=== PATIENT | female | born 1975 | race Caucasian/White ===

== ENCOUNTER 2023-10-03 09:38 | Emergency (ER) | payer BC, SELFPAY ==
[2023-10-03 09:41] VITALS: BP 123/76
--- NOTE | 2023-10-03 10:01 | ED.GENMED ---
History of Present Illness
General
Chief Complaint: Back Pain
Source: patient
Exam Limitations: none
Time Seen by Provider: 10/03/23 09:50
History of Present Illness
History of Present Illness:
48-year-old female presents complaining of severe low back pain that radiates down the posterior left leg into the posterior calf. This was getting worse since yesterday. She has been dealing with similar symptoms for 5 weeks. She saw
orthopedics. She did physical therapy Neurontin and Celebrex. She noted no relief. She called to try to expedite a follow-up appointment and we can get her in until tomorrow. She is unable to sleep unable to walk secondary to pain. She denies
any bowel or bladder function. No perianal anesthesia. No weakness to the legs.
Past History
Past History
ED Past Medical History: Cancer (Thyroid), Psychiatric (Anxiety) and Other (Migraines, ovarian cyst)
ED Past Surgical History: Other (Thyroidectomy)
Social History
Tobacco: Non-smoker
Alcohol: Occasional
Personal:
Living: with family
Family History
Family History: Negative CAD
Phy Exam
Physical Exam
Physical Exam:
General: uncomfortable appearing female no acute distress
Musculoskeletal exam: No reproducible tenderness over the lumbar spine
Heart: Regular rate and rhythm no murmurs
Lungs: Clear no wheeze
Neurologic: Good sensation and strength to lower extremities bilaterally. Bilateral patellar reflexes 2+.
Vascular: 2+ dorsalis pedis pulse bilateral feet
Course
Orders/Labs/Results
Orders:
Orders
10/03/23 10:00
Dexamethasone Sod Phosphate [Decadron] 10 mg IV NOW STA
Ketorolac [Toradol] 15 mg IV NOW STA
diazePAM [Valium Injection] 5 mg IV NOW STA
Vital Signs
Initial and Last Documented VS:
Initial Vital Signs
Temp Pulse Resp BP Pulse Ox
98.8 F 83 18 123/76 99
10/03/23 09:41 10/03/23 09:41 10/03/23 09:41 10/03/23 09:41 10/03/23 09:41
Last Documented Vital Signs
Temp Pulse Resp BP Pulse Ox
98.1 F 74 16 112/68 99
10/03/23 12:00 10/03/23 12:00 10/03/23 12:00 10/03/23 12:00 10/03/23 12:00
MDM/Problems Addressed
Differential Diagnosis Includes:
Lower back pain radiating down the left leg. Suspect radiculopathy. No signs to suggest cauda equina. No fever to suggest infectious source. Patient has been taking oral Celebrex and gabapentin without significant relief.
*Critical Care Note
Total Time (30-74mins, 75-104mins- exclusive of procedures): Not Applicable
Update Note
Update Note:
Patient feeling significant improvement after Valium Toradol and Decadron. Will send patient home with Valium and prednisone if needed. She is due to see orthopedics tomorrow.
ED Attending Note
-
Portions of this chart may have been created with voice recognition software.� Occasional wrong word or��sound alike� substitutions may have occurred due to the inherent limitations of voice recognition software.
Discharge Plan
Departure
Patient Disposition: Home (Routine Discharge)
Date of Disposition: 10/03/23
Time of Disposition: 12:22
Patient with high blood pressure during this ER visit?: No
Discharge Problem:
Acute lumbar radiculopathy
Instructions: Radiculopathy (DC)
Prescriptions:
New
prednisone 10 mg Tablet
See Rx Instructions .ROUTE .COMPLEX Qty: 30 0RF
Rx Instructions:
Take By Mouth:
40 mg daily x3 days, 30 mg daily x3 days,
20 mg daily x3 days, 10 mg daily x3 days.
diazepam [Valium] 5 mg tablet
5 mg PO TID PRN (Reason: muscle spasm) Qty: 10 0RF
No Action
levothyroxine 200 MCG tablet
200 mcg PO DAILY
escitalopram oxalate 20 MG tablet
20 mg PO DAILY
oxycodone-acetaminophen [Percocet] 1 EACH tablet
1 ea PO Q4HPRN PRN (Reason: Pain) Qty: 15 0RF
Referrals:
Manan Koch DO [Family Provider] -
Activity Restrictions/Additional Instructions:
Rest. Take prednisone as directed. Use Valium if needed for spasm. Follow-up with orthopedic as planned peer return if worse otherwise
Interventions
Interventions:
*Risk Screen - Suicide Last Done: 10/03/23 09:41
*General Assessment Last Done: 10/03/23 09:41
*Neglect/Abuse Screening Last Done: 10/03/23 09:41
ED-Musculoskeletal Assessment Last Done: 10/03/23 10:15
Discharge Date and Time
Print Language: THAI
[2023-10-03] MEDS: DECADRON 10 MG IV (10:10)
[2023-10-03] MEDS: VALIUM INJECTION 5 MG IV (10:11)
[2023-10-03] MEDS: TORADOL 15 MG IV (10:11)
[2023-10-03 12:00] VITALS: BP 112/68
== END 2023-10-03 12:25 | disposition home or self-care (01) ==
LOC: EMR 09:38
PROVIDERS: EMERGENCY PHYSICIAN Student in an Organized Health Care Education/Training Program; FAMILY PHYSICIAN Family Medicine
DX: M54.16 Radiculopathy, lumbar region (principal); R26.2 Difficulty in walking, not elsewhere classified; F41.9 Anxiety disorder, unspecified; G43.909 Migraine, unspecified, not intractable, without status migrainosus; N83.209 Unspecified ovarian cyst, unspecified side; Z85.850 Personal history of malignant neoplasm of thyroid; Z88.2 Allergy status to sulfonamides
CPT/HCPCS: 99284; 96374; 96375 ×2

== ENCOUNTER 2024-01-29 17:39 | Emergency (ER) | payer BC, SELFPAY ==
[2024-01-29 17:55] VITALS: BP 152/87
[2024-01-29 18:11] LABS: % Basophils 0.2 % (0-2); % Eosinophils 1.2 % (0-6); % Immature Granulocytes 0.4 % (0-0.5); % Lymphocytes 18.8 % (20.5-51.1); % Monocytes 9.4 % (1.7-9.3); Absolute Eosinophils 0.1 10^3/uL (0-0.7); Absolute Lymphocytes 0.9 10^3/uL (1.2-3.4); Absolute Monocytes 0.5 10^3/uL (0.1-0.6); Absolute Neutrophils 3.4 10^3/uL (1.4-6.5); Hematocrit 40.1 % (37.0-47.0); Hemoglobin 14.4 g/dL (12.0-16.0); Mean Corp Hgb Conc. 35.9 g/dL (33.0-37.0); Mean Corpuscular Volume 86.4 fL (81.0-99.0); Mean Platelet Volume 8.5 fL (7.4-10.4); Nucleated Red Blood Cells % 0 %; Platelet Count 170 10^3/uL (130-400); Red Blood Cell Count 4.64 10^6/uL (4.20-5.40); Red Cell Dist. Width 13.2 % (11.5-14.5); White Blood Cell Count 4.9 10^3/uL (4.8-10.8)
[2024-01-29 18:34] LABS: ALT (SGPT) 27 U/L (0-35); AST (SGOT) 35 U/L (14-36); Albumin 4.5 g/dl (3.5-5.0); Alkaline Phosphatase 48 U/L (38-126); Blood Urea Nitrogen 17 mg/dl (7-17); Calcium 8.9 mg/dl (8.4-10.2); Carbon Dioxide 26 mmol/L (22-30); Chloride 102 mmol/L (98-107); Glucose 105 mg/dl (70-99); Lipase 115 U/L (23-300); Potassium 3.7 mmol/L (3.5-5.1); Sodium 138 mmol/L (135-145); Total Bilirubin 0.9 mg/dl (0.2-1.3); Total Protein 6.8 g/dl (6.3-8.2); eGFR > 60.00
[2024-01-29 18:37] LABS: Troponin I < 0.012 ng/ml
[2024-01-29] MEDS: ZOFRAN 4 MG IV (20:13)
[2024-01-29 20:14] VITALS: BMI 26.8
[2024-01-29] MEDS: NSS 1000 IV (20:14)
--- NOTE | 2024-01-29 23:33 | ED.GENMED ---
History of Present Illness
General
Chief Complaint: Abdominal Pain
Source: patient
Exam Limitations: none
Time Seen by Provider: 01/29/24 19:11
Nursing documentation reviewed up to this point in time: agreed with
History of Present Illness
History of Present Illness:
PPatient to ED with complaint of upper abdominal pain x 1 week. She was placed on omeprazole bid by PCP without improvement. Now reports nausea x 2 days. Denies fever/chills. No vomiting or diarrhea. Brought self to ED for eval.
Past History
Past History
ED Past Medical History: Cancer (Thyroid), Hypothyroidism, Psychiatric (Anxiety) and Other (Migraines, ovarian cyst)
ED Past Surgical History: Other (Thyroidectomy)
Social History
Tobacco: Non-smoker
Alcohol: Occasional
Personal:
Living: with family
Family History
Family History: Negative CAD
Review of Systems
Review of Systems
Allergies reviewed?: Yes
All Other Systems: ROS reviewed and negative except as documented in HPI and ROS
Constitutional: Reports no symptoms
EENT: Reports no symptoms
Respiratory: Reports no symptoms
Cardiac: Reports no symptoms
ABD/GI: Reports abdominal pain (upper abd. pain)
: Reports no symptoms
Musculoskeletal: Reports no symptoms
Skin: Reports no symptoms
Neurological: Reports no symptoms
Psychiatric: Reports no symptoms
Phy Exam
General Physical Exam
General Presentation: well appearing and mild distress
General age: appears stated age
General Skin: warm and dry
General Habitus: normal
Cardiovascular Exam
Cardiovascular Exam: regular rate/rhythm
Pulmonary Exam
Pulmonary Exam: no respiratory distress and chest non tender
Gastrointestinal Exam
Gastrointestinal Exam: normal bowel sounds, soft, no organomegaly, no pulsatile mass, non distended and no cva tenderness
Palpation: left upper quadrant: Moderate tenderness, left lower quadrant: No tenderness, right upper quadrant: Moderate tenderness and right lower quadrant: No tenderness
Musculoskeletal Exam
Musculoskeletal Exam: full ROM
Skin Exam
Skin Exam: normal color, warm/dry and no rash
Psychiatric Exam
Psychiatric Exam: normal mood/affect
Course
Orders/Labs/Results
Orders:
Orders
01/29/24 17:47
EKG [Electrocardiogram (*1)] Stat
Reason for Study: Chest Pain
EKG- Treatment ONCE
01/29/24 18:02
Complete Blood Count/With Diff Urgent
Comprehensive Metabolic Panel Urgent
Lipase Urgent
Troponin I Urgent
01/29/24 19:17
0.9% Sodium Chloride 1000 ml [Nss] 1,000 ml IV BOLUS
Ondansetron Injectable [Zofran] 4 mg IV NOW STA
US Abdomen Complete/Upper Urgent
Comment:
Reason For Exam: upper abd. pain
Abnormal Lab Results
01/29/24
18:02
Absolute Lymphs (auto) 0.9 L 10^3/uL
(1.2-3.4)
Lymphocytes % 18.8 L %
(20.5-51.1)
Monocytes % 9.4 H %
(1.7-9.3)
Glucose 105 H mg/dl
(70-99)
01/29/24 18:02
01/29/24 18:02
Vital Signs
Initial and Last Documented VS:
Initial Vital Signs
Temp Pulse Resp BP Pulse Ox
98.1 F 104 16 152/87 98
01/29/24 17:55 01/29/24 17:55 01/29/24 17:55 01/29/24 17:55 01/29/24 17:55
Last Documented Vital Signs
Temp Pulse Resp BP Pulse Ox
98.1 F 104 16 152/87 98
01/29/24 17:55 01/29/24 17:55 01/29/24 17:55 01/29/24 17:55 01/29/24 17:55
*Radiology
Radiology exam reviewed: radiology read reviewed
*Pulse Oximetry
Patient hypoxic: no
*Critical Care Note
Total Time (30-74mins, 75-104mins- exclusive of procedures): Not Applicable
Update Note
Update Note:
Ppatient to ED wth complaint of upper abdominal pain, nausea. Labs reviewed, no concerning findings. US normal. Given zofran in dept for complaint of nausea and she reports improvement in her symptoms. WIll dishcarge home with rx for prn zofran.
She will follow up with PCP. Given number for GI follow up also. She was given instructions ons/s to return to ED and she is agreeable to plan
ED Attending Note
-
Portions of this chart may have been created with voice recognition software.� Occasional wrong word or��sound alike� substitutions may have occurred due to the inherent limitations of voice recognition software.
Discharge Plan
Departure
Patient Disposition: Home (Routine Discharge)
Date of Disposition: 01/29/24
Time of Disposition: 20:27
Patient with high blood pressure during this ER visit?: No
Condition: Good
Covid-19: Not Applicable
Discharge Problem:
Abdominal pain
Instructions: Abdominal Pain
Prescriptions:
New
ondansetron 4 mg tablet,disintegrating
4 mg PO Q8H PRN (Reason: nausea and vomiting) 3 Days Qty: 10 0RF
No Action
levothyroxine 200 MCG tablet
200 mcg PO DAILY
escitalopram oxalate 20 MG tablet
20 mg PO DAILY
oxycodone-acetaminophen [Percocet] 1 EACH tablet
1 ea PO Q4HPRN PRN (Reason: Pain) Qty: 15 0RF
prednisone 10 mg Tablet
See Rx Instructions .ROUTE .COMPLEX Qty: 30 0RF
Rx Instructions:
Take By Mouth:
40 mg daily x3 days, 30 mg daily x3 days,
20 mg daily x3 days, 10 mg daily x3 days.
diazepam [Valium] 5 mg tablet
5 mg PO TID PRN (Reason: muscle spasm) Qty: 10 0RF
Referrals:
Errol Bear, DO [Active] - Call in 1-3 days for appt
Activity Restrictions/Additional Instructions:
Return to the emergency department immediately for any changes in/worsening of your symptoms.
Interventions
Interventions:
*Risk Screen - Suicide Last Done: 01/29/24 17:55
*General Assessment Last Done: 01/29/24 17:55
*Neglect/Abuse Screening Last Done: 01/29/24 17:55
ED- Fall Risk Assessment Last Done: 01/29/24 21:08
*ED COVID-19 Vaccine History Last Done: 01/29/24 21:08
*Nursing Disposition Last Done: 01/29/24 21:15
YF-Fngtaw-Hyecosbduw Assessment Last Done: 01/29/24 21:08
Discharge Date and Time
Discharge Date/Time: 01/29/24 21:16
Print Language: SUDANESE
== END 2024-01-29 21:16 | disposition home or self-care (01) ==
LOC: EMR 17:39
PROVIDERS: EMERGENCY PHYSICIAN Student in an Organized Health Care Education/Training Program; FAMILY PHYSICIAN Family Medicine
DX: R10.10 Upper abdominal pain, unspecified (principal); R11.0 Nausea; R42 Dizziness and giddiness; E03.9 Hypothyroidism, unspecified; F41.9 Anxiety disorder, unspecified; G43.909 Migraine, unspecified, not intractable, without status migrainosus; Z85.850 Personal history of malignant neoplasm of thyroid
CPT/HCPCS: 99284; 96374; 96361; 76700; 80053; 83690; 84484; 85025; 93005